=== PATIENT | male | born 1955 | race Hispanic/Latino ===

== ENCOUNTER 2023-10-16 03:09 | Emergency (ER) | payer BC ==
[~2023-10-16] VITALS: Ht 185.4 cm; Wt 88.3 kg
[2023-10-16 03:42] LABS: BASOPHILS 0.8 % (0-2); EOSINOPHILS 0.5 % (0-6); HEMATOCRIT 36.1 % (35.0-50.0); HEMOGLOBIN 12.7 g/dL (12.0-18.0); LYMPHOCYTES 15.8 % (24-44); MCHC 35.3 g/dl (30-36); MCV 96.4 fl (81-99); MONOCYTES 10.6 % (0-12); NEUTROPHILS 72.3 % (39-80); PLATELET COUNT 253 K/uL (140-440); RBC 3.74 M/ul (4.3-5.7); RDW 13.3 (10.5-15.0)
[2023-10-16] MEDS ORDERED: AMLODIPINE BESYLATE 10 MG TAB PO ONE (03:45)
[2023-10-16] MEDS ORDERED: LABETALOL HCL 20 MG/4 ML VIAL IV ONE (03:45)
[2023-10-16] MEDS ORDERED: lisinopriL 20 MG TAB PO ONE (03:45)
[2023-10-16 03:57] LABS: ALBUMIN 3.2 g/dL (3.4-5.0); ALBUMIN/GLOBULIN RATIO 0.73 (1.1-2.4); ANION GAP 9.7 (7-21); BILIRUBIN, TOTAL 0.3 ng/dL (0.2-1.0); BUN/CREATININE RATIO 9.74 (6.0-28.6); CALCIUM 8.7 mg/dL (8.5-10.1); CREATININE, SERUM 1.54 mg/dL (0.70-1.30); MAGNESIUM 1.7 mg/dL (1.8-2.4); POTASSIUM 2.7 mmol/L (3.5-5.1); PROTEIN, TOTAL 7.6 g/dL (6.4-8.2)
[2023-10-16 04:21] LABS: BILIRUBIN, URINE POSITIVE (negative); BLOOD/HGB, URINE NEGATIVE (Negative); KETONE, URINE TRACE (Negative); LEUK ESTERASE, URINE NEGATIVE (negative); NITRITE, URINE NEGATIVE (negative); PH, URINE 6.5 (5-7)
[2023-10-16 04:25] LABS: EPITHELIAL CELLS, URINE SQUAMOUS 1+ /lpf (0-1+)
[2023-10-16 04:26] LABS: BACTERIA, URINE RARE /hpf (negative); CASTS, URINE NONE SEEN \\lpf; COLLECTION TYPE, URINE CLEAN CATCH; CRYSTALS, URINE NONE SEEN (0-1+); REFLEX CULTURE, URINE No (No)
[2023-10-16 04:35] LABS: AMPHETAMINES, URINE POSITIVE (NEGATIVE); BARBITURATES, URINE NEGATIVE (NEGATIVE); BENZODIAZEPINE, URINE NEGATIVE (NEGATIVE); BUPRENORPHINE, URINE NEGATIVE (NEGATIVE); CANNABINOID, URINE POSITIVE (NEGATIVE); COCAINE, URINE NEGATIVE (NEGATIVE); ECSTASY, URINE POSITIVE (NEGATIVE); FENTANYL, URINE NEGATIVE (NEGATIVE); METHADONE, URINE NEGATIVE (NEGATIVE); OPIATES, URINE NEGATIVE (NEGATIVE); OXYCODONE, URINE NEGATIVE (NEGATIVE); PHENCYCLIDINE, URINE NEGATIVE (NEGATIVE)
[2023-10-16] MEDS ORDERED: hydrALAZINE HCL 20 MG/ML VIAL IV ONE (05:00)
[2023-10-16] MEDS ORDERED: ZESTRIL20 MG PO (05:22)
[2023-10-16] MEDS ORDERED: NORVASC10 MG PO (05:22)
[2023-10-16] MEDS ORDERED: POTASSIUM CHLORIDE 10 MEQ TABCR PO ONE (05:30)
[2023-10-16 05:33] VITALS: BP 173/86
--- NOTE | 2023-10-16 21:35 | EKG ---
[facility] [address] [facility] [place] [address] Signed Sinus rhythm with 1st degree AV block with frequent premature ventricular complexes Moderate voltage criteria for LVH, may be normal variant ( Sokolow-Agarwal , [place] product ) Nonspecific T wave abnormality Abnormal ECG No previous ECGs available Confirmed by Michell Ramirez MD () on 10/16/2023 9:35:17 PM Electronically Signed By: MICHELL RAMIREZ MD 10/16/23 2135 PATIENT NAME: SHEILA CASTANON Electrocardiogram DATE OF : 55 PHYSICIAN: MICHELL RAMIREZ MD REPORT #: [id number] REPORT IS CONFIDENTIAL AND NOT TO BE RELEASED WITHOUT AUTHORIZATION
== END 2023-10-16 05:33 | disposition home or self-care (01) ==
LOC: ED 03:09
PROVIDERS: Internal Medicine
DX: I10 Essential (primary) hypertension (principal)
CPT/HCPCS: 36415; 71045; 80053; 80307; 81001; 83735; 85025; 93005; 93010; 96374; 96375; 99284-25; A9270; G0480; J0360